=== PATIENT | male | born 1995 | race Caucasian/White ===

== ENCOUNTER 2017-12-01 07:42 | Emergency (ER) | payer OTHER ==
[~2017-12-01] VITALS: Ht 175.3 cm; Wt 69.1 kg
[2017-12-01] MEDS ORDERED: IBUPROFEN 600 MG TABLET PO ONE (08:45)
[2017-12-01 09:06] VITALS: BP 114/64
== END 2017-12-01 09:37 | disposition home or self-care (01) ==
LOC: EMS 07:44
DX: S90.31XA Contusion of right foot, initial encounter (principal); V49.9XXA Car occupant (driver) (passenger) injured in unspecified traffic accident, initial encounter; Y93.89 Activity, other specified; Y92.89 Other specified places as the place of occurrence of the external cause; Y99.8 Other external cause status
CPT/HCPCS: 99284

== ENCOUNTER 2022-01-25 13:37 | Emergency (ER) | payer OTHER ==
[~2022-01-25] VITALS: Ht 177.8 cm; Wt 64.1 kg
[2022-01-25 18:26] LABS: COVID AG,FIA SOURCE NASOPHARYNGEAL
[2022-01-25] MEDS ORDERED: ACETAMINOPHEN 500 MG TABLET PO ONE (18:30)
[2022-01-25] MEDS ORDERED: IBUPROFEN 600 MG TABLET PO ONE (18:30)
[2022-01-25 18:44] LABS: INFLUENZA TYPE A NEGATIVE FOR TYPE A (NEGATIVE); INFLUENZA TYPE B NEGATIVE FOR TYPE B (NEGATIVE)
[2022-01-25] MEDS ORDERED: ACET-3385 PO (19:20)
[2022-01-25] MEDS ORDERED: IBUP-2070 PO (19:20)
[2022-01-25 19:28] VITALS: BP 121/70
== END 2022-01-25 19:37 | disposition home or self-care (01) ==
LOC: EMS 13:37
DX: J06.9 Acute upper respiratory infection, unspecified (principal); Z20.822 Contact with and (suspected) exposure to COVID-19
CPT/HCPCS: 87804; 99283